=== PATIENT | female | born 1955 | race Two or more races ===

== ENCOUNTER 2020-03-13 19:58 | Emergency (ER) | payer SELFPAY ==
--- NOTE | 2020-03-13 20:45 | ER Document Report ---
ED Medical Screen (RME) - General Chief Complaint: Chest Pain Stated Complaint: CHEST PAIN Time Seen by Provider: 03/13/20 20:36 Mode of Arrival: Ambulatory Information source: Patient, Relative Notes: HPI; 65-year-old female presents to the emergency room complaining of right- sided abdominal pain that radiates to her back for the past 3 months. States she saw her doctor this week but they did not order any testing for her. States pain is gotten worse tonight with nausea and vomiting. Also has had diarrhea for 8 days. Denies any travel. No COVID-19 exposure. Patient states she did have a negative cover test 2 weeks ago. Son is here to help translate. Denies fevers. Denies urinary symptoms. Not taking any medications for her symptoms. PE: Alert and oriented x3. Mild distress noted. Lungs: Clear to auscultation without rales, rhonchi, wheezes. Heart: Regular rate rhythm without murmurs, rubs, gallops. I have greeted and performed a rapid initial assessment of this patient. A comprehensive ED assessment and evaluation of the patient, analysis of test results and completion of the medical decision making process will be conducted by additional ED providers. I have specifically instructed the patient or family members with the patient to immediately return to any nursing staff should anything change in the patient's condition or with their chief complaint. TRAVEL OUTSIDE OF THE [place] IN LAST 30 DAYS: No - Related Data Allergies/Adverse Reactions: No Known Allergies Allergy (Verified 03/13/20 20:36) Physical Exam - Vital signs Vitals: Temp Pulse Resp BP Pulse Ox 98.4 F 83 16 136/54 H 95 03/13/20 20:20 03/13/20 20:20 03/13/20 20:20 03/13/20 20:20 03/13/20 20:20 Course - Vital Signs Vital signs: Temp Pulse Resp BP Pulse Ox 98.4 F 83 16 136/54 H 95 03/13/20 20:20 03/13/20 20:20 03/13/20 20:20 03/13/20 20:20 03/13/20 20:20
[2020-03-13 22:49] LABS: ABSOLUTE BASOPHILS # (AUTO) 0.1 10^3/uL (0.0-0.2); ABSOLUTE EOSINOPHILS # (AUTO) 0.2 10^3/uL (0.0-0.6); ABSOLUTE LYMPHOCYTES (AUTO) 4.9 10^3/uL (0.5-4.7); ABSOLUTE MONOCYTES (AUTO) 0.7 10^3/uL (0.1-1.4); ABSOLUTE NEUT (AUTO) 4.1 10^3/uL (1.7-8.2); EOSINOPHILS % (AUTO) 1.6 % (0-6); HEMATOCRIT 41.6 % (36.0-47.0); HEMOGLOBIN 14.6 g/dL (12.0-15.5); LYMPHOCYTES % (AUTO) 48.9 % (13-45); MEAN CORPUSCULAR HEMOGLOBIN 31.6 pg (27.0-33.4); MEAN CORPUSCULAR VOLUME 90 fl (80-97); MONOCYTES % (AUTO) 6.7 % (3-13); PLATELET COUNT 308 10^3/uL (150-450); RED BLOOD COUNT 4.61 10^6/uL (3.72-5.28); RED CELL DISTRIBUTION WIDTH 12.6 % (11.5-14.0); SEGMENTED NEUTROPHILS % (AUTO) 41.8 % (42-78); TOTAL CELLS COUNTED % (AUTO) 100 %; WHITE BLOOD COUNT 9.9 10^3/uL (4.0-10.5)
[2020-03-13 22:51] LABS: APPEARANCE,URINE CLEAR; BILIRUBIN,URINE NEGATIVE (NEGATIVE); COLOR,URINE YELLOW; GLUCOSE, URINE 50 mg/dL (NEGATIVE); KETONES,URINE NEGATIVE (NEGATIVE); LEUKOCYTE ESTERASE,URINE NEGATIVE (NEGATIVE); NITRITE,URINE NEGATIVE (NEGATIVE); PROTEIN,URINE NEGATIVE (NEGATIVE); URINE SPECIFIC GRAVITY 1.015; UROBILINOGEN,URINE NEGATIVE mg/dL (<2.0)
[2020-03-13 23:30] LABS: ALBUMIN 4.7 g/dL (3.5-5.0); ALKALINE PHOSPHATASE 136 U/L (38-126); ANION GAP 9 (5-19); ASPARTATE AMINO TRANSFERASE 32 U/L (14-36); BILIRUBIN,DIRECT 0.2 mg/dL (0.0-0.4); BILIRUBIN,TOTAL 0.3 mg/dL (0.2-1.3); BLOOD UREA NITROGEN 18 mg/dL (7-20); CALCIUM 10.4 mg/dL (8.4-10.2); CARBON DIOXIDE 27 mmol/L (22-30); CHLORIDE 103 mmol/L (98-107); GLUCOSE 162 mg/dL (75-110); POTASSIUM 4.3 mmol/L (3.6-5.0); TOTAL PROTEIN 8.2 g/dL (6.3-8.2)
--- NOTE | 2020-03-14 01:37 | RADIOLOGY REPORT (SQ) ---
EXAM DESCRIPTION: CT ABDOMEN PELVIS WITH IV CONTRAST COMPLETED DATE/TME: 03/13/2020 20:44 CLINICAL HISTORY: Right lower abdominal pain. COMPARISON: None Available. TECHNIQUE: CT of the abdomen and pelvis performed following IV administration of 78 mL Omnipaque 350. FINDINGS: Lung Bases: The visualized lung bases are clear. Bones: Mild degenerative endplate spondylosis. Abdomen: Liver: The liver has normal size and density. No intrahepatic biliary dilatation. Small right hepatic cyst. Gallbladder: No calcified gallstones. Spleen, Pancreas, and Adrenal Glands: The spleen, pancreas, and adrenal glands are unremarkable. Kidneys: No hydronephrosis or obstructing calculus. Vasculature: The aorta and IVC have normal caliber and position. The portal vein is patent. The proximal visceral and renal arteries are patent. Stomach: The stomach and duodenum have normal course. Other: No free intraperitoneal air. No free fluid or lymphadenopathy. Pelvis: Bladder: Urinary bladder is unremarkable. Bowel: No dilated loops of large or small bowel. Scattered diverticula colon. Appendix: Normal appendix. Pelvis: Uterus is not enlarged. IMPRESSION: 1. No acute inflammatory or obstructive process identified. 2. Diverticulosis without evidence of acute diverticulitis. This exam was performed according to our departmental dose-optimization program, which includes automated exposure control, adjustment of the mA and/or kV according to patient size and/or use of iterative reconstruction technique.
[2020-03-14] MEDS ORDERED: NORMAL SALINE 1000 ML 1,000 ML IV ONE (01:44)
--- NOTE | 2020-03-14 01:46 | ER Document Report ---
ED GI/ - General Chief Complaint: Abdominal Pain Stated Complaint: CHEST PAIN Time Seen by Provider: 03/13/20 20:36 Primary Care Provider: ANTON MCFARLANE MD [ACTIVE STAFF] - Follow up as needed SAÚL LEYVA MD [ACTIVE STAFF] - Follow up as needed Mode of Arrival: Ambulatory Notes: Patient is a 65-year-old Maltese-speaking female who presents the emergency department with a chief complaint of abdominal pain and leg pain. 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 Patient states that she has had abdominal pain on and off for the past about month. She ended up vomiting once, but has not vomited anymore. Patient also reports that she has pain from her waist down. She also states that she feels cold and feels a little shaky/nervous. She also reports pain in her right abdomen. Patient states family has a history of liver and gallbladder cancer. Patient has history of diverticulosis that was diagnosed 6 to 7 years ago along with H. pylori. Patient's son is at bedside. He speaks Gambian and understands Gambian. TRAVEL OUTSIDE OF THE [place] IN LAST 30 DAYS: No - Related Data Allergies/Adverse Reactions: No Known Allergies Allergy (Verified 03/13/20 20:36) Home Medications: lisinopril. metformin. glipizide. gabapentin. zofran. pravastatin Past Medical History - General Information source: Patient, Relative - Social History Smoking Status: Never Smoker Chew tobacco use (# tins/day): No Frequency of alcohol use: None Drug Abuse: None Family History: Reviewed & Not Pertinent Review of Systems - Review of Systems Notes: REVIEW OF SYSTEMS: CONSTITUTIONAL : Denies recent illness. Denies recent unintentional weight loss. Denies fever, chills, or sweats. EENT: Denies eye, ear, throat, or mouth pain, discharge, or symptoms. Denies nasal or sinus congestion. CARDIOVASCULAR: Denies chest pain. RESPIRATORY: Denies shortness of breath, cough, congestion, difficulty breathing, or wheezing. GASTROINTESTINAL: See HPI. GENITOURINARY: Denies difficulty urinating, burning, blood in urine, urgency or frequency. MUSCULOSKELETAL: Denies neck and back pain. See HPI. SKIN: Denies rash, itchiness, or lesions HEMATOLOGIC : Denies easy bruising or bleeding. LYMPHATIC: Denies swollen, painful, enlarged glands. NEUROLOGICAL: Denies no numbness or tingling denies weakness. Denies headache. Denies altered mental status. Denies alteration in speech. PSYCHIATRIC: Denies stress, anxiety, alteration in sleep patterns, or depression. All other systems reviewed and negative. Physical Exam - Vital signs Vitals: Temp Pulse Resp BP Pulse Ox 98.4 F 83 16 136/54 H 95 03/13/20 20:20 03/13/20 20:20 03/13/20 20:20 03/13/20 20:20 03/13/20 20:20 - Notes Notes: PHYSICAL EXAMINATION: GENERAL: Appears well, healthy, well-nourished, no acute distress. HEAD: Normocephalic, atraumatic. EYES: PERRL, conjunctiva normal, all extraocular movements intact, sclera nonicteric ENT: Moist mucous membranes. NECK: Supple, no noticeable swelling, redness, rash. Normal range of motion. LUNGS: Equal breath sounds bilaterally and clear to auscultation. No wheezes rales or rhonchi. CARDIOVASCULAR: S1-S2, regular rate, regular rhythm. Radial pulses 2+, normal. ABDOMEN: Normoactive bowel sounds. Soft, tender right upper quadrant, no guarding, no rebound tenderness, and no masses palpated. EXTREMITIES: Normal strength and range of motion, no pitting or edema. No cyanosis. NEUROLOGICAL: Moves all extremities upon command. Strength 5/5 in all extremities. PSYCH: Normal mood, normal affect. SKIN: Warm, dry. No rash, lesions, ulcerations noted. Normal skin turgor. Course - Re-evaluation Re-evalutation: 03/14/20 01:45 Hematology is unremarkable. Chemistries show an elevated glucose of 162. Calcium was 10.4, which may be contributing to her leg pain. We will give her a liter of IV fluids and will reassess. Lipase is normal. LFTs are normal. Urinalysis is unremarkable. Patient was tested for COVID-[address] of the abdomen pelvis show a small cyst in her liver. We will send her for right upper quadrant ultrasound for further investigation. 03/14/20 03:21 Right upper quadrant ultrasound shows a small cyst that was noted on CT. I offered the language line for these results and the son was able to understand and translate what was found. Patient will follow-up with her primary care provider on Sunday. Also refer her to GI on an outpatient basis. Follow-up precautions were given. Verbal discharge instructions were given to the patient. They verbalized understanding. They are stable for discharge. - Vital Signs Vital signs: Temp Pulse Resp BP Pulse Ox 98.4 F 83 16 136/54 H 95 03/13/20 20:20 03/13/20 20:20 03/13/20 20:20 03/13/20 20:20 03/13/20 20:20 - Laboratory Result Diagrams: 03/13/20 22:40 03/13/20 22:40 Laboratory results interpreted by me: 03/13/20 03/13/20 03/13/20 22:40 22:40 22:40 Lymph % (Auto) 48.9 H Absolute Lymphs (auto) 4.9 H Seg Neutrophils % 41.8 L Glucose 162 H Calcium 10.4 H Alkaline Phosphatase 136 H Urine Glucose (UA) 50 H Urine Ascorbic Acid 20 H Discharge - Discharge Clinical Impression: Leg pain, bilateral, Hypercalcemia, Suspected COVID-19 virus infection Abdominal pain Qualifiers: Abdominal location: right upper quadrant Qualified Code(s): R10.11 - Right upper quadrant pain Condition: Stable Disposition: HOME, SELF-CARE Instructions: COVID-19 Guidance for Persons Under Investigation Additional Instructions: You were seen today in the emergency department for abdominal pain and leg pain. Your labs show that you are a little dehydrated and your calcium was high. Your ultrasound shows a very small cyst in your liver and your CT scan showed diverticulosis. Please follow-up with gastroenterology in regards to this visit. Also follow-up with your doctor after your COVID-19 test are resulted. You were also tested for COVID-19. Please isolate until your results are back. The health department will call you with your results. If they are positive, stay in quarantine for at least 2 weeks. Te vieron hoy en el departamento de emergencias por dolor abdominal y dolor en las piernas. Fatimah laboratorios muestran que usted est un poco deshidratado y que harris calcio estaba alto. La ecografa muestra un quiste muy pequeo en el hg ado y la tomografa computarizada mostr diverticulosis. Por favor, riaz un seguimiento de la gastroenterologa con respecto a esta visita. Tamluana riaz un seguimiento con harris mdico el rosa maria. Tamluana se le prob COVID-19. Por favor, asle hasta que fatimah resultados vuelvan. El departamento de joe le llamar con fatimah resultados. Si son positivos, permanezca en cuarentena ileana al menos 2 semanas. Referrals: SAÚL LEYVA MD [ACTIVE STAFF] - Follow up as needed ANTON MCFARLANE MD [ACTIVE STAFF] - Follow up as needed
--- NOTE | 2020-03-14 03:03 | RADIOLOGY REPORT (SQ) ---
EXAM DESCRIPTION: US ABDOMEN LIMITED COMPLETED DATE/TME: 03/14/2020 01:44 CLINICAL HISTORY: 65 years, Female, RUQ pain COMPARISON: CT 03/14/2020 TECHNIQUE: Limited right upper quadrant ultrasound LIMITATIONS: None. FINDINGS: Liver shows a tiny 14 x 14 mm simple hepatic cyst. No gallstones or gallbladder wall thickening. CBD measures 4.1 mm. Visualized pancreas, abdominal aorta, inferior vena cava, right kidney unremarkable. No ascites IMPRESSION: Simple hepatic cyst. No gallstones. copyright 2010 [employer]- All Rights Reserved
[2020-03-14 03:41] VITALS: BP 112/58
--- NOTE | 2020-03-14 08:52 | EKG REPORT ---
SEVERITY:- NORMAL ECG - SINUS RHYTHM : Confirmed by: Brock Lisa MD 14-Mar-2020 08:52:13
== END 2020-03-14 03:41 | disposition home or self-care (01) ==
LOC: ER 19:58
DX: R10.11 Right upper quadrant pain (principal); E83.52 Hypercalcemia; M79.604 Pain in right leg; M79.605 Pain in left leg; K57.30 Diverticulosis of large intestine without perforation or abscess without bleeding; K76.89 Other specified diseases of liver; Z79.899 Other long term (current) drug therapy; Z79.84 Long term (current) use of oral hypoglycemic drugs; Z20.828 Contact with and (suspected) exposure to other viral communicable diseases
CPT/HCPCS: 93005; 99285; 96360; 36415; 83690; 85025; 87635; 80053; 81001; 76705; 74177; 93010; J7030; C9803